=== PATIENT | male | born 1970 | race Caucasian/White ===

== ENCOUNTER 2023-12-22 23:41 | Emergency (ER) | payer SELFPAY | END 2023-12-23 00:06 | disposition home or self-care (01) | LOC: MADERS 23:41 | DX: E86.0 Dehydration (principal); R57.1 Hypovolemic shock; F10.239 Alcohol dependence with withdrawal, unspecified; R55 Syncope and collapse; F17.210 Nicotine dependence, cigarettes, uncomplicated | CPT/HCPCS: 99284 ==

== ENCOUNTER 2023-12-31 10:30 | Emergency (ER) | payer SELFPAY | END 2023-12-31 11:03 | disposition home or self-care (01) | LOC: MADERS 10:30 | DX: S60.417A Abrasion of left little finger, initial encounter (principal); L02.512 Cutaneous abscess of left hand; F17.210 Nicotine dependence, cigarettes, uncomplicated; Y28.8XXA Contact with other sharp object, undetermined intent, initial encounter | CPT/HCPCS: 10060; 87070; 87077; 87186; 87205 ==